=== PATIENT | male | born 1935 | race Caucasian/White ===

== ENCOUNTER → 2016-06-18 | Outpatient (CLI) | payer MEDICARE, OTHER ==
[~2016-06-18] MED LIST: COLACE100 M1 PO; COUMADIN4 MG PO; FEOSOL325 MG PO; LIPITOR20 M2 PO; PRILOSEC 20MG20 MG PO; Patient's Own Medica PO; SSKI1 GM/1 ML PO; SYNTHROID0.2 MG/TAB PO; TOPROL XL 25MG25 MG PO
== END ==
LOC: LAB 13:39
DX: I48.2 Chronic atrial fibrillation (principal); E78.5 Hyperlipidemia, unspecified; D50.8 Other iron deficiency anemias

== ENCOUNTER → 2016-08-06 | Outpatient (CLI) | payer MEDICARE, OTHER ==
[2015-12-10 13:12] VITALS: BP 109/72
== END ==
LOC: LAB 11:24
DX: R73.02 Impaired glucose tolerance (oral) (principal); I48.2 Chronic atrial fibrillation; E78.2 Mixed hyperlipidemia; Z12.5 Encounter for screening for malignant neoplasm of prostate; D50.8 Other iron deficiency anemias; E03.4 Atrophy of thyroid (acquired)

== ENCOUNTER → 2017-09-09 | Outpatient (CLI) | payer MEDICARE, OTHER ==
[2015-12-10 13:12] VITALS: BP 109/72
== END ==
LOC: RAD 15:15
DX: J18.9 Pneumonia, unspecified organism (principal); I48.91 Unspecified atrial fibrillation; I69.359 Hemiplegia and hemiparesis following cerebral infarction affecting unspecified side

== ENCOUNTER → 2017-12-20 | Outpatient (CLI) | payer MEDICARE, OTHER ==
[2015-12-10 13:12] VITALS: BP 109/72
[2017-12-20 15:11] LABS: EOS # 0.1 (0.04-0.40); EOS % 0.9 % (0.0-4.0); HEMATOCRIT 47.3 % (42.0-52.0); HEMOGLOBIN 16.1 g/dL (13.5-18.0); LYMPH# 2.4 (1.50-4.00); MEAN CELL VOLUME 93 fl (78-100); MEAN CORPUSCULAR HEMOGLOBIN 32 pg (27-31); MEAN CORPUSCULAR HGB CONC 34 g/dL (33-37); MEAN PLATELET VOLUME 10.9 fl (7.4-10.4); MONO # 0.6 (0.20-0.80); NEU # 3.6 (1.40-6.50); PLATELET COUNT 180 K/mm3 (130-400); RED BLOOD COUNT 5.08 M/mm3 (4.20-5.60); RED CELL DISTRIBUTION WIDTH 14.8 % (11.5-14.5); WHITE BLOOD COUNT 6.7 K/mm3 (4.8-10.8)
[2017-12-20 16:07] LABS: ALBUMIN 4.1 g/dL (3.5-5.0); CALCIUM 8.4 mg/dL (8.4-10.2); POTASSIUM 4.4 mmol/L (3.6-5.0); TOTAL PROTEIN 7.2 g/dL (6.3-8.2)
[2017-12-20 17:52] LABS: ERYTHROCYTE SEDIMENTATION RATE 6 mm/hr (0-20)
== END ==
LOC: LAB 14:27
PROVIDERS: Internal Medicine
DX: Z12.5 Encounter for screening for malignant neoplasm of prostate (principal); R73.02 Impaired glucose tolerance (oral); I48.91 Unspecified atrial fibrillation; D50.9 Iron deficiency anemia, unspecified; E78.5 Hyperlipidemia, unspecified

== ENCOUNTER → 2018-02-20 | Outpatient (CLI) | payer MEDICARE, OTHER ==
[2015-12-10 13:12] VITALS: BP 109/72
== END ==
LOC: LAB 14:18
DX: R20.2 Paresthesia of skin (principal)

== ENCOUNTER → 2019-04-16 | Outpatient (CLI) | payer MEDICARE, OTHER ==
[2015-12-10 13:12] VITALS: BP 109/72
[2019-04-16 12:02] LABS: EOS # 0.1 (0.04-0.40); EOS % 1.5 % (0.0-4.0); HEMATOCRIT 45.1 % (42.0-52.0); HEMOGLOBIN 14.9 g/dL (13.5-18.0); LYMPH# 2.6 (1.50-4.00); MEAN CELL VOLUME 92 fl (78-100); MEAN CORPUSCULAR HEMOGLOBIN 30 pg (27-31); MEAN CORPUSCULAR HGB CONC 33 g/dL (33-37); MEAN PLATELET VOLUME 10.8 fl (7.4-10.4); MONO # 0.8 (0.20-0.80); NEU # 4.4 (1.40-6.50); PLATELET COUNT 200 K/mm3 (130-400); RED CELL DISTRIBUTION WIDTH 14.2 % (11.5-14.5)
[2019-04-16 12:15] LABS: ALBUMIN 3.7 g/dL (3.4-4.8); POTASSIUM 3.9 mmol/L (3.5-5.1)
[2019-04-16 12:16] LABS: CALCIUM 9.2 mg/dL (8.3-10.5)
[2019-04-16 12:18] LABS: TOTAL PROTEIN 7.2 g/dL (6.2-8.1)
[2019-04-16 12:19] LABS: TOTAL BILIRUBIN 0.6 mg/dL (0.2-1.2)
[2019-04-16 13:03] LABS: ERYTHROCYTE SEDIMENTATION RATE 23 mm/hr (0-20)
== END ==
LOC: LAB 11:52
PROVIDERS: Internal Medicine
DX: I48.91 Unspecified atrial fibrillation (principal); E78.2 Mixed hyperlipidemia; R73.02 Impaired glucose tolerance (oral)

== ENCOUNTER → 2019-08-29 | Outpatient (CLI) | payer MEDICARE, OTHER ==
[2015-12-10 13:12] VITALS: BP 109/72
[2019-08-29 11:56] LABS: ALBUMIN 3.7 g/dL (3.4-4.8); POTASSIUM 4.5 mmol/L (3.5-5.1)
[2019-08-29 11:57] LABS: CALCIUM 8.6 mg/dL (8.3-10.5)
[2019-08-29 11:58] LABS: TOTAL PROTEIN 7.2 g/dL (6.2-8.1)
[2019-08-29 11:59] LABS: BASO # 0.1 (0.02-0.10); EOS # 0.1 (0.04-0.40); HEMATOCRIT 44.3 % (42.0-52.0); HEMOGLOBIN 14.2 g/dL (13.5-18.0); LYMPH# 2.6 (1.50-4.00); MEAN CELL VOLUME 92 fl (78-100); MEAN CORPUSCULAR HEMOGLOBIN 30 pg (27-31); MEAN CORPUSCULAR HGB CONC 32 g/dL (33-37); MONO # 0.7 (0.20-0.80); NEU # 5.5 (1.40-6.50); PLATELET COUNT 183 K/mm3 (130-400); RED CELL DISTRIBUTION WIDTH 14.3 % (11.5-14.5); WHITE BLOOD COUNT 8.9 K/mm3 (4.8-10.8)
[2019-08-29 12:00] LABS: TOTAL BILIRUBIN 0.5 mg/dL (0.2-1.2)
[2019-08-29 13:24] LABS: ERYTHROCYTE SEDIMENTATION RATE 18 mm/hr (0-20)
== END ==
LOC: LAB 10:36
PROVIDERS: Internal Medicine
DX: I48.91 Unspecified atrial fibrillation (principal); E78.2 Mixed hyperlipidemia; E03.9 Hypothyroidism, unspecified; R73.02 Impaired glucose tolerance (oral)

== ENCOUNTER → 2019-12-27 | Outpatient (CLI) | payer MEDICARE, OTHER ==
[2015-12-10 13:12] VITALS: BP 109/72
[2019-12-27 17:17] LABS: EOS # 0.1 (0.04-0.40); EOS % 1.6 % (0.0-4.0); HEMATOCRIT 42.8 % (42.0-52.0); HEMOGLOBIN 13.8 g/dL (13.5-18.0); LYMPH# 3.1 (1.50-4.00); MEAN CELL VOLUME 91 fl (78-100); MEAN CORPUSCULAR HEMOGLOBIN 29 pg (27-31); MEAN CORPUSCULAR HGB CONC 32 g/dL (33-37); MEAN PLATELET VOLUME 10.3 fl (7.4-10.4); MONO # 0.8 (0.20-0.80); NEU # 3.9 (1.40-6.50); PLATELET COUNT 228 K/mm3 (130-400); RED BLOOD COUNT 4.71 M/mm3 (4.20-5.60); RED CELL DISTRIBUTION WIDTH 14.6 % (11.5-14.5); WHITE BLOOD COUNT 7.9 K/mm3 (4.8-10.8)
[2019-12-27 17:30] LABS: ALBUMIN 4.2 g/dL (3.4-4.8); POTASSIUM 4.3 mmol/L (3.5-5.1)
[2019-12-27 17:32] LABS: PROTHROMBIN TIME 13.1 SECONDS (9.0-12.0)
[2019-12-27 17:33] LABS: TOTAL PROTEIN 7.7 g/dL (6.2-8.1)
[2019-12-27 17:34] LABS: TOTAL BILIRUBIN 0.5 mg/dL (0.2-1.2)
[2019-12-27 18:25] LABS: ERYTHROCYTE SEDIMENTATION RATE 24 mm/hr (0-20)
== END ==
LOC: LAB 16:49
PROVIDERS: Internal Medicine
DX: K90.9 Intestinal malabsorption, unspecified (principal); I48.21 Permanent atrial fibrillation; R73.02 Impaired glucose tolerance (oral); R97.20 Elevated prostate specific antigen [PSA]; E78.5 Hyperlipidemia, unspecified

== ENCOUNTER → 2020-03-24 | Outpatient (CLI) | payer MEDICARE, OTHER ==
[2015-12-10 13:12] VITALS: BP 109/72
[2020-03-24 14:34] LABS: EOS # 0.1 (0.04-0.40); EOS % 1.6 % (0.0-4.0); HEMOGLOBIN 12.4 g/dL (13.5-18.0); LYMPH# 2.4 (1.50-4.00); MEAN CELL VOLUME 90 fl (78-100); MEAN CORPUSCULAR HEMOGLOBIN 28 pg (27-31); MEAN CORPUSCULAR HGB CONC 31 g/dL (33-37); MEAN PLATELET VOLUME 10.4 fl (7.4-10.4); MONO # 0.7 (0.20-0.80); NEU # 4.3 (1.40-6.50); PLATELET COUNT 246 K/mm3 (130-400); RED BLOOD COUNT 4.47 M/mm3 (4.20-5.60); RED CELL DISTRIBUTION WIDTH 14.9 % (11.5-14.5); WHITE BLOOD COUNT 7.5 K/mm3 (4.8-10.8)
[2020-03-24 14:42] LABS: ALBUMIN 3.9 g/dL (3.4-4.8)
[2020-03-24 14:43] LABS: POTASSIUM 4.3 mmol/L (3.5-5.1)
[2020-03-24 14:44] LABS: CALCIUM 8.5 mg/dL (8.3-10.5)
[2020-03-24 14:45] LABS: TOTAL PROTEIN 7.2 g/dL (6.2-8.1)
[2020-03-24 14:47] LABS: TOTAL BILIRUBIN 0.4 mg/dL (0.2-1.2)
== END ==
LOC: LAB 14:13
PROVIDERS: Internal Medicine
DX: K90.9 Intestinal malabsorption, unspecified (principal); I48.20 Chronic atrial fibrillation, unspecified; D50.9 Iron deficiency anemia, unspecified

== ENCOUNTER → 2021-01-12 | Outpatient (CLI) | payer MEDICARE, OTHER ==
[2021-01-12 16:34] LABS: BASO # 0.05 K/mm3 (0.02-0.10); EOS # 0.12 K/mm3 (0.04-0.40); EOS % 1.5 % (0.0-4.0); HEMOGLOBIN 11.7 g/dL (13.5-18.0); LYMPH# 2.79 K/mm3 (1.50-4.00); MEAN CELL VOLUME 84 fl (78-100); MEAN CORPUSCULAR HEMOGLOBIN 25 pg (27-31); MEAN CORPUSCULAR HGB CONC 30 g/dL (33-37); MEAN PLATELET VOLUME 9.4 fl (7.4-10.4); MONO # 0.63 K/mm3 (0.20-0.80); NEU # 4.52 K/mm3 (1.40-6.50); PLATELET COUNT 246 K/mm3 (130-400); RED BLOOD COUNT 4.62 M/mm3 (4.20-5.60); RED CELL DISTRIBUTION WIDTH 17.4 % (11.5-14.5); WHITE BLOOD COUNT 8.1 K/mm3 (4.8-10.8)
[2021-01-12 16:51] LABS: POTASSIUM 3.9 mmol/L (3.5-5.1)
[2021-01-12 16:52] LABS: CALCIUM 9.1 mg/dL (8.3-10.5)
[2021-01-12 16:53] LABS: TOTAL PROTEIN 7.6 g/dL (6.2-8.1)
[2021-01-12 16:55] LABS: TOTAL BILIRUBIN 0.5 mg/dL (0.2-1.2)
== END ==
LOC: LAB 15:57
PROVIDERS: Internal Medicine
DX: Z12.5 Encounter for screening for malignant neoplasm of prostate (principal); Z12.11 Encounter for screening for malignant neoplasm of colon; I48.20 Chronic atrial fibrillation, unspecified; E78.2 Mixed hyperlipidemia; E03.4 Atrophy of thyroid (acquired); K90.9 Intestinal malabsorption, unspecified; N31.9 Neuromuscular dysfunction of bladder, unspecified

== ENCOUNTER → 2021-12-25 | Outpatient (CLI) | payer MEDICARE ==
[2021-12-25 13:03] LABS: URINE APPEARANCE HAZY; URINE BILIRUBIN NEGATIVE (NEGATIVE); URINE BLOOD 50 ery/uL (NEGATIVE); URINE COLOR YELLOW; URINE GLUCOSE NEGATIVE (NEGATIVE); URINE KETONE NEGATIVE (NEGATIVE); URINE LEUKOCYTE ESTERASE 2+ (NEGATIVE); URINE NITRATE NEGATIVE (NEGATIVE); URINE PROTEIN(semi-quant) TRACE (NEGATIVE); URINE UROBILINOGEN NORMAL (NORMAL)
[2021-12-25 13:04] LABS: URINE MUCUS PRESENT (NOT PRESENT); URINE WBC 31-50 /hpf (0-3)
== END ==
LOC: LAB 12:16
PROVIDERS: Internal Medicine
DX: R30.9 Painful micturition, unspecified (principal)